=== PATIENT | male | born 1965 | race Caucasian/White ===

== ENCOUNTER 2020-11-19 21:17 | Inpatient (IN) | payer MEDICARE, MEDICAID ==
[~2020-11-19] VITALS: Ht 180.3 cm; Wt 77.3 kg
[~2020-11-19 21:17] MED LIST: AMAN-6 PO; BENZ1TAB10 PO; BUPR-93 PO; CLOZ100T32 PO; GLIP5 PO; LEVO100T4 PO; METF-960 PO; PIOG45TA4 PO; PROP10TA72 PO; SIMV-260 PO; SOLI5 PO; TEMA15CA PO; VALS160T2 PO
[2020-11-20 00:42] VITALS: BP 145/82
[2020-11-20] MEDS ORDERED: PNEUMOCOCCAL VACCINE POLYVALENT 0.5 ML VIAL [PPSV23] IM. ONE (03:00)
[2020-11-20] MEDS: ZOLPIDEM TARTRATE 10 MG TABLET PO PRN (03:55)
[2020-11-20] MEDS: HALOPERIDOL 5 MG TABLET PO PRN (06:02)
[2020-11-20] MEDS: LORazepam 2 MG TABLET PO PRN ×2 (06:02→12:50)
[2020-11-20 06:13] LABS: GLUCOMETER DEV NAME(LOC) BV2X.; GLUCOSE,POINT OF CARE 193 MG/DL (70-110)
[2020-11-20 07:56] LABS: BASOPHILS % (AUTO) 0.8 % (0.0-2.0); EOSINOPHILS % (AUTO) 0.1 % (1.0-6.0); HEMATOCRIT 49.2 % (41-53); HEMOGLOBIN 17.1 g/dL (13.5-17.5); LYMPHOCYTES % (AUTO) 30.6 % (22.0-44.0); MEAN CORPUSCULAR HEMOGLOBIN 33.3 pg (26.0-34.0); MEAN CORPUSCULAR HGB CONC 34.7 G/dL (31.0-37.0); MEAN CORPUSCULAR VOLUME 96 fL (80-100); MONOCYTES # (AUTO) 0.7 K/uL (0.1-1.0); MONOCYTES % (AUTO) 10.4 % (2.0-9.0); NEUTROPHILS # (AUTO) 3.7 K/uL (1.8-7.7); NEUTROPHILS % (AUTO) 58.1 % (40.0-70.0); PLATELET COUNT (AUTO) 145 K/uL (150-450); RED BLOOD CELL COUNT(AUTO) 5.13 MIL/uL (4.50-5.90)
[2020-11-20] MEDS ORDERED: ONDANSETRON HCL 4 MG TABLET PO PRN (08:00)
[2020-11-20] MEDS ORDERED: ALBUTEROL SULFATE HFA 90 MCG/PUFF 8 GM INHALER IH PRN (08:00)
[2020-11-20] MEDS ORDERED: LOPERAMIDE HCL 2 MG CAPSULE PO PRN (08:00)
[2020-11-20] MEDS ORDERED: NICOTINE 14 MG/24 HOUR PATCH TD PRN (08:00)
[2020-11-20] MEDS ORDERED: GuaiFENesin/D-METHORPHAN [SUGAR-FREE] 200-20MG/10 ML SYRUP UDCUP PO PRN (08:00)
[2020-11-20] MEDS ORDERED: MAG HYDROX/AL HYDROX/SIMETH ES 30 ML SUSPENSION UDCUP PO PRN (08:00)
[2020-11-20] MEDS ORDERED: DOCUSATE SODIUM 100 MG CAPSULE PO PRN (08:00)
[2020-11-20] MEDS ORDERED: MAGNESIUM HYDROXIDE SUSPENSION 30 ML UDCUP PO PRN (08:00)
[2020-11-20] MEDS ORDERED: PETROLATUM,WHITE 28 GM JELLY TP PRN (08:00)
[2020-11-20 08:02] LABS: HEMOGLOBIN A1C 6.1 % (3.8-5.6)
[2020-11-20 08:11] VITALS: BP 128/75
[2020-11-20 08:36] LABS: ALANINE AMINOTRANSFERASE 18 U/L (12-78); ALKALINE PHOSPHATASE 41 U/L (46-116); ANION GAP 5 mmol/L (8-16); ASPARTATE AMINOTRANSFERASE 11 U/L (15-37); BILIRUBIN,TOTAL 0.5 mg/dL (0.1-1.0); CALCIUM, TOTAL 9.3 mg/dL (8.8-10.5); CARBON DIOXIDE 28 mmol/L (22-29); CHLORIDE 104 mmol/L (98-107); CHOL/HDL RATIO 5.4 (4.2-7.3); CHOLESTEROL 188 mg/dL (131-200); CREATININE 0.94 mg/dL (0.60-1.30); FREE T4 (FREE THYROXINE) 0.84 ng/dL (0.76-1.46); GLOMERULAR FILTR. RATE CALC > 60 mL/min (>60); GLUCOSE,RANDOM 172 mg/dL (70-110); HDL CHOLESTEROL 35 mg/dL (40-60); LDL CHOL (CALC.) 130 mg/dL (0-130); POTASSIUM 4.3 mmol/L (3.5-5.1); SODIUM SERUM 137 mmol/L (136-145); THYROID STIMULATING HORMONE 4.24 uIU/mL (0.36-3.74); TOTAL PROTEIN, SERUM 7.6 g/dL (6.4-8.2); TRIGLYCERIDES 114 mg/dL (15-150); UREA NITROGEN, BLOOD 26 mg/dL (7-18)
[2020-11-20] MEDS: PROPRANOLOL HCL 10 MG TABLET PO SCH ×2 (09:00→12:08)
[2020-11-20] MEDS: NICOTINE 21 MG/24 HOUR PATCH TD SCH (12:07)
[2020-11-20] MEDS: ACETAMINOPHEN 325 MG TABLET PO PRN (12:10)
[2020-11-20] MEDS: PROPRANOLOL HCL 20 MG TABLET PO SCH ×2 (13:41→16:46)
[2020-11-20] MEDS: DIVALPROEX SODIUM 500 MG DR TABLET PO SCH ×2 (13:41→16:47)
[2020-11-20] MEDS: VALSARTAN 160 MG TABLET PO SCH (13:43)
[2020-11-20] MEDS: BusPIRone HCL 10 MG TABLET PO SCH ×2 (13:53→16:47)
[2020-11-20] MEDS: PIOGLITAZONE HCL 45 MG TABLET PO SCH (15:23)
[2020-11-20 16:04] VITALS: BP 131/74
[2020-11-20] MEDS: GlipiZIDE 5 MG TABLET PO SCH (16:46)
[2020-11-20] MEDS: MetFORMIN HCL 500 MG TABLET PO SCH (17:00)
[2020-11-20] MEDS ORDERED: HALOPERIDOL LACTATE 5 MG/ML VIAL IM ONE (17:45)
[2020-11-20] MEDS ORDERED: DiphenhydrAMINE HCL 50 MG/ML VIAL IM ONE (17:45)
[2020-11-20] MEDS ORDERED: LORazepam 2 MG/ML VIAL IM ONE (17:45)
[2020-11-20 19:30] VITALS: BP 128/50
[2020-11-20] MEDS: SOLIFENACIN SUCCINATE 5 MG TABLET PO SCH (20:41)
[2020-11-20] MEDS: TraZODone HCL 100 MG TABLET PO SCH (20:41)
[2020-11-20] MEDS: SIMVASTATIN 20 MG TABLET PO SCH (20:41)
[2020-11-20] MEDS: AMANTADINE HCL 100 MG CAPSULE PO SCH (20:42)
[2020-11-20] MEDS ORDERED: QUEtiapine FUMARATE 200 MG TABLET PO SCH (21:00)
[2020-11-21 00:31] VITALS: BP 126/65
[2020-11-21 02:30] VITALS: BP 130/84
[2020-11-21] MEDS: LORazepam 2 MG TABLET PO PRN ×4 (02:33→21:50)
[2020-11-21] MEDS: ZOLPIDEM TARTRATE 10 MG TABLET PO PRN ×2 (02:33→21:50)
[2020-11-21 06:00] VITALS: BP 112/65
[2020-11-21] MEDS: GlipiZIDE 5 MG TABLET PO SCH ×2 (06:23→17:30)
[2020-11-21] MEDS: HALOPERIDOL 5 MG TABLET PO PRN ×2 (06:23→13:14)
[2020-11-21] MEDS: LEVOTHYROXINE SODIUM 100 MCG TABLET PO SCH (06:23)
[2020-11-21] MEDS: MetFORMIN HCL 500 MG TABLET PO SCH ×2 (06:23→17:30)
[2020-11-21] MEDS ORDERED: DiphenhydrAMINE HCL 50 MG/ML VIAL ONE (07:37)
[2020-11-21] MEDS ORDERED: LORazepam 2 MG/ML VIAL ONE (07:37)
[2020-11-21] MEDS ORDERED: HALOPERIDOL LACTATE 5 MG/ML VIAL ONE (07:38)
[2020-11-21] MEDS ORDERED: LORazepam 2 MG/ML VIAL IM ONE ×2 (07:45→15:10)
[2020-11-21] MEDS ORDERED: HALOPERIDOL LACTATE 5 MG/ML VIAL IM ONE ×2 (07:45→15:10)
[2020-11-21] MEDS ORDERED: DiphenhydrAMINE HCL 50 MG/ML VIAL IM ONE ×2 (07:45→15:10)
[2020-11-21 08:04] VITALS: BP 128/67
[2020-11-21] MEDS: NICOTINE 21 MG/24 HOUR PATCH TD SCH (09:00)
[2020-11-21] MEDS: PIOGLITAZONE HCL 45 MG TABLET PO SCH (09:49)
[2020-11-21] MEDS: BusPIRone HCL 10 MG TABLET PO SCH ×3 (09:49→17:30)
[2020-11-21] MEDS: DIVALPROEX SODIUM 500 MG DR TABLET PO SCH ×3 (09:49→17:30)
[2020-11-21] MEDS: PROPRANOLOL HCL 20 MG TABLET PO SCH ×3 (09:49→17:30)
[2020-11-21] MEDS: VALSARTAN 160 MG TABLET PO SCH (09:49)
[2020-11-21] MEDS: TraZODone HCL 100 MG TABLET PO SCH (20:45)
[2020-11-21] MEDS: SOLIFENACIN SUCCINATE 5 MG TABLET PO SCH (20:45)
[2020-11-21] MEDS: QUEtiapine FUMARATE 200 MG TABLET PO SCH (20:45)
[2020-11-21] MEDS: AMANTADINE HCL 100 MG CAPSULE PO SCH (20:45)
[2020-11-21] MEDS: SIMVASTATIN 20 MG TABLET PO SCH (20:46)
[2020-11-22] MEDS: LORazepam 2 MG TABLET PO PRN ×3 (02:48→14:28)
[2020-11-22] MEDS: HALOPERIDOL 5 MG TABLET PO PRN (02:48)
[2020-11-22 06:18] VITALS: BP 128/79
[2020-11-22] MEDS: LEVOTHYROXINE SODIUM 100 MCG TABLET PO SCH (06:48)
[2020-11-22] MEDS: GlipiZIDE 5 MG TABLET PO SCH ×2 (06:48→16:39)
[2020-11-22] MEDS: MetFORMIN HCL 500 MG TABLET PO SCH ×2 (06:49→16:39)
[2020-11-22] MEDS ORDERED: ChlorproMAZINE HCL 50 MG TABLET PO PRN (07:30)
[2020-11-22 08:29] VITALS: BP 114/75
[2020-11-22] MEDS: DIVALPROEX SODIUM 500 MG DR TABLET PO SCH ×3 (08:36→16:39)
[2020-11-22] MEDS: BusPIRone HCL 10 MG TABLET PO SCH ×3 (08:36→16:39)
[2020-11-22] MEDS: PIOGLITAZONE HCL 45 MG TABLET PO SCH (08:36)
[2020-11-22] MEDS: PROPRANOLOL HCL 20 MG TABLET PO SCH ×3 (08:37→16:39)
[2020-11-22] MEDS: NICOTINE 21 MG/24 HOUR PATCH TD SCH (08:37)
[2020-11-22] MEDS: VALSARTAN 160 MG TABLET PO SCH (08:37)
[2020-11-22] MEDS: QUEtiapine FUMARATE 200 MG TABLET PO SCH ×2 (08:37→21:37)
[2020-11-22] MEDS: ACETAMINOPHEN 325 MG TABLET PO PRN (09:10)
[2020-11-22] MEDS ORDERED: IBUPROFEN 600 MG TABLET PO PRN (09:15)
[2020-11-22 16:34] VITALS: BP 109/62
[2020-11-22 18:05] LABS: GLUCOMETER DEV NAME(LOC) BV3N.; GLUCOSE,POINT OF CARE 152 MG/DL (70-110)
[2020-11-22] MEDS: AMANTADINE HCL 100 MG CAPSULE PO SCH (21:37)
[2020-11-22] MEDS: SIMVASTATIN 20 MG TABLET PO SCH (21:37)
[2020-11-22] MEDS: SOLIFENACIN SUCCINATE 5 MG TABLET PO SCH (21:37)
[2020-11-22] MEDS: TraZODone HCL 100 MG TABLET PO SCH (21:37)
[2020-11-23] MEDS: GlipiZIDE 5 MG TABLET PO SCH ×2 (06:53→16:09)
[2020-11-23] MEDS: LEVOTHYROXINE SODIUM 100 MCG TABLET PO SCH (06:54)
[2020-11-23] MEDS: MetFORMIN HCL 500 MG TABLET PO SCH ×2 (06:54→16:09)
[2020-11-23] MEDS: LORazepam 2 MG TABLET PO PRN ×2 (06:54→13:09)
[2020-11-23 08:20] VITALS: BP 102/63
[2020-11-23] MEDS: PIOGLITAZONE HCL 45 MG TABLET PO SCH (09:27)
[2020-11-23] MEDS: QUEtiapine FUMARATE 200 MG TABLET PO SCH ×2 (09:27→21:10)
[2020-11-23] MEDS: BusPIRone HCL 10 MG TABLET PO SCH ×3 (09:27→16:09)
[2020-11-23] MEDS: NICOTINE 21 MG/24 HOUR PATCH TD SCH (09:27)
[2020-11-23] MEDS: PROPRANOLOL HCL 20 MG TABLET PO SCH ×3 (09:27→16:09)
[2020-11-23] MEDS: DIVALPROEX SODIUM 500 MG DR TABLET PO SCH ×3 (09:27→16:09)
[2020-11-23] MEDS: VALSARTAN 160 MG TABLET PO SCH (09:32)
[2020-11-23 16:13] VITALS: BP 111/60
[2020-11-23] MEDS: AMANTADINE HCL 100 MG CAPSULE PO SCH (21:10)
[2020-11-23] MEDS: SIMVASTATIN 20 MG TABLET PO SCH (21:10)
[2020-11-23] MEDS: TraZODone HCL 100 MG TABLET PO SCH (21:10)
[2020-11-23] MEDS: SOLIFENACIN SUCCINATE 5 MG TABLET PO SCH (21:10)
[2020-11-24 06:30] VITALS: BP 140/72
[2020-11-24] MEDS: MetFORMIN HCL 500 MG TABLET PO SCH ×2 (06:37→16:41)
[2020-11-24] MEDS: GlipiZIDE 5 MG TABLET PO SCH ×2 (06:37→16:01)
[2020-11-24] MEDS: LEVOTHYROXINE SODIUM 100 MCG TABLET PO SCH (06:38)
[2020-11-24] MEDS: LORazepam 2 MG TABLET PO PRN ×2 (06:38→16:01)
[2020-11-24 08:35] VITALS: BP 132/67
[2020-11-24] MEDS: PIOGLITAZONE HCL 45 MG TABLET PO SCH (09:05)
[2020-11-24] MEDS: PROPRANOLOL HCL 20 MG TABLET PO SCH ×3 (09:06→16:32)
[2020-11-24] MEDS: DIVALPROEX SODIUM 500 MG DR TABLET PO SCH ×3 (09:07→16:31)
[2020-11-24] MEDS: QUEtiapine FUMARATE 200 MG TABLET PO SCH ×2 (09:07→20:27)
[2020-11-24] MEDS: VALSARTAN 160 MG TABLET PO SCH (09:09)
[2020-11-24] MEDS: NICOTINE 21 MG/24 HOUR PATCH TD SCH (09:09)
[2020-11-24] MEDS: BusPIRone HCL 10 MG TABLET PO SCH ×3 (09:10→16:31)
[2020-11-24 16:22] VITALS: BP 124/79
[2020-11-24] MEDS: HALOPERIDOL 5 MG TABLET PO PRN (17:28)
[2020-11-24] MEDS: SIMVASTATIN 20 MG TABLET PO SCH (20:27)
[2020-11-24] MEDS: TraZODone HCL 100 MG TABLET PO SCH (20:27)
[2020-11-24] MEDS: AMANTADINE HCL 100 MG CAPSULE PO SCH (20:28)
[2020-11-24] MEDS: SOLIFENACIN SUCCINATE 5 MG TABLET PO SCH (20:28)
[2020-11-25 06:09] VITALS: BP 118/69
[2020-11-25] MEDS: GlipiZIDE 5 MG TABLET PO SCH (06:22)
[2020-11-25] MEDS: LEVOTHYROXINE SODIUM 100 MCG TABLET PO SCH (06:22)
[2020-11-25] MEDS: LORazepam 2 MG TABLET PO PRN (06:22)
[2020-11-25] MEDS: MetFORMIN HCL 500 MG TABLET PO SCH (06:23)
[2020-11-25 08:21] VITALS: BP 109/73
[2020-11-25] MEDS: BusPIRone HCL 10 MG TABLET PO SCH ×2 (08:24→12:02)
[2020-11-25] MEDS: DIVALPROEX SODIUM 500 MG DR TABLET PO SCH ×2 (08:24→12:02)
[2020-11-25] MEDS: PIOGLITAZONE HCL 45 MG TABLET PO SCH (08:24)
[2020-11-25] MEDS: VALSARTAN 160 MG TABLET PO SCH (08:24)
[2020-11-25] MEDS: ACETAMINOPHEN 325 MG TABLET PO PRN (08:25)
[2020-11-25] MEDS: QUEtiapine FUMARATE 200 MG TABLET PO SCH (08:25)
[2020-11-25] MEDS: PROPRANOLOL HCL 20 MG TABLET PO SCH ×2 (08:25→13:08)
[2020-11-25] MEDS: NICOTINE 21 MG/24 HOUR PATCH TD SCH (08:26)
[2020-11-25] MEDS: HALOPERIDOL 5 MG TABLET PO PRN (08:26)
[2020-11-25] MEDS ORDERED: PROP20TA18 PO (14:48)
[2020-11-25] MEDS ORDERED: QUET200T PO (14:49)
[2020-11-25] MEDS ORDERED: TRAZ-257 PO (14:49)
[2020-11-25] MEDS ORDERED: DIVA-112 PO (14:50)
[2020-11-25] MEDS ORDERED: BUSP10TA23 PO (14:51)
== END 2020-11-25 15:55 | disposition home or self-care (01) | DRG 885 ==
LOC: B2X 11-20 00:01 → B3A 11-21 14:23
DX: F25.0 Schizoaffective disorder, bipolar type (principal); R45.851 Suicidal ideations; E11.9 Type 2 diabetes mellitus without complications; I10 Essential (primary) hypertension; J44.9 Chronic obstructive pulmonary disease, unspecified; Z79.899 Other long term (current) drug therapy; E78.5 Hyperlipidemia, unspecified; E03.9 Hypothyroidism, unspecified; M19.90 Unspecified osteoarthritis, unspecified site
CPT/HCPCS: 80053; 82962; 83036; 84439; 84443; 85025; J1200; J1630; J2060

== ENCOUNTER 2022-03-13 14:13 | Inpatient (IN) | payer MEDICARE, MEDICAID ==
[~2022-03-13] VITALS: Ht 180.3 cm; Wt 100.2 kg
[~2022-03-13 14:13] MED LIST changes: +AMAN-24 PO; -AMAN-6 PO; -BENZ1TAB10 PO; -BUPR-93 PO; +BUSP10TA23 PO; -CLOZ100T32 PO; +DIVA-112 PO; -GLIP5 PO; +GLIP5TAB12 PO; +METF-1211 PO; -METF-960 PO; -PROP10TA72 PO; +PROP20TA18 PO; +QUET200T PO; -TEMA15CA PO; +TRAZ-257 PO
[2022-03-13] MEDS ORDERED: DiphenhydrAMINE HCL 50 MG/ML VIAL IM ONE (16:00)
[2022-03-13] MEDS ORDERED: LORazepam 2 MG/ML VIAL IM ONE (16:00)
[2022-03-13] MEDS ORDERED: HALOPERIDOL LACTATE 5 MG/ML VIAL IM ONE (16:00)
[2022-03-13] MEDS ORDERED: PROPRANOLOL HCL 10 MG TABLET PO ONE (17:00)
[2022-03-13] MEDS ORDERED: INSULIN REGULAR, HUMAN 100 UNITS/ML SQ ONE (17:00)
[2022-03-13] MEDS ORDERED: PIOGLITAZONE HCL 15 MG TABLET PO ONE (17:00)
[2022-03-13] MEDS ORDERED: KETOROLAC TROMETHAMINE 60 MG/2 ML VIAL IM ONE (17:15)
[2022-03-13 18:37] LABS: APPEARANCE,URINE CLEAR (CLEAR); BILIRUBIN,URINE NEGATIVE (NEGATIVE); GLUCOSE, URINE (UA) >=1000 mg/dL (NEGATIVE); KETONES,URINE TRACE mg/dL (NEGATIVE); LEUKOCYTE ESTERASE ,URINE NEGATIVE (NEGATIVE); NITRATE,URINE NEGATIVE (NEGATIVE); OCCULT BLOOD,URINE NEGATIVE (NEGATIVE); PROTEIN,URINE NEGATIVE (NEGATIVE); SPECIFIC GRAVITIY, URINE 1.031 (1.003-1.030); UROBILINOGEN,URINE <=1.0 mg/dL (<=1.0)
[2022-03-13 18:42] LABS: AMPHET/METH SCREEN,URINE NEGATIVE (NEGATIVE); BARBITURATE SCREEN, URINE NEGATIVE (NEGATIVE); BENZODIAZEPINES SCREEN,URINE NEGATIVE (NEGATIVE); CANNABINOID SCREEN,URINE NEGATIVE (NEGATIVE); COCAINE SCREEN,URINE NEGATIVE (NEGATIVE); METHADONE SCREEN, URINE NEGATIVE (NEGATIVE); OPIATE SCREEN,URINE NEGATIVE (NEGATIVE)
[2022-03-13 18:47] LABS: PHENCYCLIDINE SCREEN,URINE NEGATIVE (NEGATIVE)
[2022-03-13 18:52] LABS: COVID AG,FIA SOURCE NASAL SWAB
[2022-03-13 20:06] LABS: GLUCOSE,POINT OF CARE 337 MG/DL (70-110)
[2022-03-13 21:41] LABS: BACTERIA,URINE None Seen /HPF (None Seen); RBC,URINE None Seen /HPF (0-2); WBC,URINE None Seen /HPF (0-5)
[2022-03-13 22:23] VITALS: BP 112/64
[2022-03-13] MEDS: ZOLPIDEM TARTRATE 10 MG TABLET PO PRN (22:31)
[2022-03-13 22:51] LABS: GLUCOMETER DEV NAME(LOC) BV3N.; GLUCOSE,POINT OF CARE 207 MG/DL (70-110)
[2022-03-14] MEDS ORDERED: MAGNESIUM HYDROXIDE SUSPENSION 30 ML UDCUP PO PRN (06:00)
[2022-03-14] MEDS ORDERED: PETROLATUM,WHITE 28 GM JELLY TP PRN (06:00)
[2022-03-14] MEDS ORDERED: LOPERAMIDE HCL 2 MG CAPSULE PO PRN (06:00)
[2022-03-14] MEDS ORDERED: GuaiFENesin/D-METHORPHAN [SUGAR-FREE] 200-20MG/10 ML SYRUP UDCUP PO PRN (06:00)
[2022-03-14] MEDS ORDERED: ALBUTEROL SULFATE HFA 90 MCG/PUFF 8 GM INHALER IH PRN (06:00)
[2022-03-14] MEDS ORDERED: NICOTINE 14 MG/24 HOUR PATCH TD PRN (06:00)
[2022-03-14] MEDS ORDERED: ONDANSETRON HCL 4 MG TABLET PO PRN (06:00)
[2022-03-14] MEDS ORDERED: MAG HYDROX/AL HYDROX/SIMETH ES 30 ML SUSPENSION UDCUP PO PRN (06:00)
[2022-03-14] MEDS ORDERED: DOCUSATE SODIUM 100 MG CAPSULE PO PRN (06:00)
[2022-03-14 06:11] LABS: GLUCOMETER DEV NAME(LOC) BV3N.; GLUCOSE,POINT OF CARE 217 MG/DL (70-110)
[2022-03-14] MEDS: MetFORMIN HCL 500 MG TABLET PO SCH ×2 (06:47→16:12)
[2022-03-14] MEDS: GlipiZIDE 5 MG TABLET PO SCH ×2 (06:47→16:12)
[2022-03-14] MEDS: LEVOTHYROXINE SODIUM 100 MCG TABLET PO SCH (06:47)
[2022-03-14 07:09] LABS: BASOPHILS % (AUTO) 1.4 % (0.0-2.0); EOSINOPHILS % (AUTO) 0.2 % (1.0-6.0); HEMATOCRIT 37.7 % (41-53); HEMOGLOBIN 13.2 g/dL (13.5-17.5); LYMPHOCYTES # (AUTO) 1.7 K/uL (1.0-4.8); LYMPHOCYTES % (AUTO) 41.7 % (22.0-44.0); MEAN CORPUSCULAR HEMOGLOBIN 32.1 pg (26.0-34.0); MEAN CORPUSCULAR HGB CONC 35.1 G/dL (31.0-37.0); MEAN CORPUSCULAR VOLUME 91 fL (80-100); MONOCYTES # (AUTO) 0.4 K/uL (0.1-1.0); MONOCYTES % (AUTO) 10.2 % (2.0-9.0); NEUTROPHILS # (AUTO) 1.9 K/uL (1.8-7.7); NEUTROPHILS % (AUTO) 46.5 % (40.0-70.0); PLATELET COUNT (AUTO) 140 K/uL (150-450); RED BLOOD CELL COUNT(AUTO) 4.13 MIL/uL (4.50-5.90); RED CELL DISTRIBUTION WIDTH 14.1 % (11.5-14.5)
[2022-03-14 07:24] LABS: HEMOGLOBIN A1C 8.6 % (3.8-5.6)
[2022-03-14 07:40] LABS: ALANINE AMINOTRANSFERASE 8 U/L (12-78); ALBUMIN 2.9 g/dL (3.4-5.0); ALKALINE PHOSPHATASE 37 U/L (46-116); ANION GAP 7 mmol/L (8-16); ASPARTATE AMINOTRANSFERASE 7 U/L (15-37); BILIRUBIN,TOTAL 0.2 mg/dL (0.1-1.0); CALCIUM, TOTAL 8.3 mg/dL (8.8-10.5); CARBON DIOXIDE 26 mmol/L (22-29); CHLORIDE 102 mmol/L (98-107); CHOL/HDL RATIO 6.1 (4.2-7.3); CHOLESTEROL 200 mg/dL (131-200); FREE T4 (FREE THYROXINE) 1.13 ng/dL (0.76-1.46); GLUCOSE,RANDOM 215 mg/dL (70-110); HDL CHOLESTEROL 33 mg/dL (40-60); LDL CHOL (CALC.) 124 mg/dL (0-130); POTASSIUM 4.7 mmol/L (3.5-5.1); SODIUM SERUM 135 mmol/L (136-145); THYROID STIMULATING HORMONE 2.84 uIU/mL (0.36-3.74); TOTAL PROTEIN, SERUM 6.5 g/dL (6.4-8.2); TRIGLYCERIDES 213 mg/dL (15-150); UREA NITROGEN, BLOOD 28 mg/dL (7-18); VALPROIC ACID 26 mcg/mL (50-100)
[2022-03-14 07:42] LABS: GLOMERULAR FILTR. RATE CALC 57 mL/min (>60)
[2022-03-14 08:05] VITALS: BP 121/63
[2022-03-14] MEDS: QUEtiapine FUMARATE 100 MG TABLET PO PRN (08:50)
[2022-03-14] MEDS: LORazepam 2 MG TABLET PO PRN ×2 (08:50→21:13)
[2022-03-14] MEDS: NICOTINE 21 MG/24 HOUR PATCH TD SCH (08:50)
[2022-03-14] MEDS: PIOGLITAZONE HCL 45 MG TABLET PO SCH (09:00)
[2022-03-14] MEDS: VALSARTAN 160 MG TABLET PO SCH (09:00)
[2022-03-14] MEDS ORDERED: PROPRANOLOL HCL 20 MG TABLET PO SCH ×2 (09:00)
[2022-03-14] MEDS ORDERED: PIOGLITAZONE HCL 15 MG TABLET PO SCH (09:00)
[2022-03-14] MEDS: DIVALPROEX SODIUM 500 MG DR TABLET PO SCH ×3 (11:38→21:13)
[2022-03-14] MEDS: QUEtiapine FUMARATE 200 MG TABLET PO SCH ×2 (11:39→21:06)
[2022-03-14] MEDS ORDERED: LORazepam 2 MG/ML VIAL IM ONE (16:00)
[2022-03-14] MEDS ORDERED: DiphenhydrAMINE HCL 50 MG/ML VIAL IM ONE (16:00)
[2022-03-14] MEDS ORDERED: HALOPERIDOL LACTATE 5 MG/ML VIAL IM ONE (16:00)
[2022-03-14] MEDS: PROPRANOLOL HCL 20 MG TABLET PO SCH ×2 (16:12→21:06)
[2022-03-14 20:02] VITALS: BP 128/80
[2022-03-14] MEDS: AMANTADINE HCL 100 MG CAPSULE PO SCH (21:00)
[2022-03-14] MEDS: SOLIFENACIN SUCCINATE 5 MG TABLET PO SCH (21:00)
[2022-03-14] MEDS: TraZODone HCL 100 MG TABLET PO SCH (21:06)
[2022-03-14] MEDS: SIMVASTATIN 20 MG TABLET PO SCH (21:06)
[2022-03-15 06:26] LABS: GLUCOMETER DEV NAME(LOC) BV3N.; GLUCOSE,POINT OF CARE 255 MG/DL (70-110)
[2022-03-15] MEDS: GlipiZIDE 5 MG TABLET PO SCH ×2 (06:28→16:44)
[2022-03-15] MEDS: MetFORMIN HCL 500 MG TABLET PO SCH ×2 (06:28→16:45)
[2022-03-15] MEDS: LEVOTHYROXINE SODIUM 100 MCG TABLET PO SCH (06:28)
[2022-03-15] MEDS: LORazepam 2 MG TABLET PO PRN ×2 (08:07→16:45)
[2022-03-15] MEDS: VALSARTAN 160 MG TABLET PO SCH (08:07)
[2022-03-15] MEDS: PROPRANOLOL HCL 20 MG TABLET PO SCH ×3 (08:07→20:34)
[2022-03-15] MEDS: PIOGLITAZONE HCL 45 MG TABLET PO SCH (08:07)
[2022-03-15] MEDS: NICOTINE 21 MG/24 HOUR PATCH TD SCH (08:08)
[2022-03-15] MEDS: QUEtiapine FUMARATE 200 MG TABLET PO SCH ×2 (08:08→20:34)
[2022-03-15] MEDS: DIVALPROEX SODIUM 500 MG DR TABLET PO SCH ×3 (08:08→20:34)
[2022-03-15 08:27] VITALS: BP 120/70
[2022-03-15] MEDS: QUEtiapine FUMARATE 100 MG TABLET PO PRN (16:45)
[2022-03-15 17:01] LABS: GLUCOMETER DEV NAME(LOC) BV3N.; GLUCOSE,POINT OF CARE 242 MG/DL (70-110)
[2022-03-15] MEDS ORDERED: GLUCAGON,HUMAN RECOMBINANT 1 MG VIAL IM PRN (17:30)
[2022-03-15] MEDS: INSULIN LISPRO 100 UNITS/ML SQ PRN (17:43)
[2022-03-15 20:02] VITALS: BP 101/63
[2022-03-15] MEDS ORDERED: DiphenhydrAMINE HCL 50 MG/ML VIAL ONE (20:31)
[2022-03-15] MEDS ORDERED: LORazepam 2 MG/ML VIAL ONE (20:32)
[2022-03-15] MEDS ORDERED: HALOPERIDOL LACTATE 5 MG/ML VIAL ONE (20:33)
[2022-03-15] MEDS: SOLIFENACIN SUCCINATE 5 MG TABLET PO SCH (20:34)
[2022-03-15] MEDS: TraZODone HCL 100 MG TABLET PO SCH (20:35)
[2022-03-15] MEDS: ZOLPIDEM TARTRATE 10 MG TABLET PO PRN (20:35)
[2022-03-15] MEDS: SIMVASTATIN 20 MG TABLET PO SCH (20:35)
[2022-03-15] MEDS: AMANTADINE HCL 100 MG CAPSULE PO SCH (20:36)
[2022-03-15] MEDS ORDERED: HALOPERIDOL LACTATE 5 MG/ML VIAL IM ONE (21:00)
[2022-03-15] MEDS ORDERED: LORazepam 2 MG/ML VIAL IM ONE (21:00)
[2022-03-15] MEDS ORDERED: DiphenhydrAMINE HCL 50 MG/ML VIAL IM ONE (21:00)
[2022-03-16] MEDS: MetFORMIN HCL 500 MG TABLET PO SCH ×2 (06:12→17:03)
[2022-03-16] MEDS: GlipiZIDE 5 MG TABLET PO SCH ×2 (06:12→17:02)
[2022-03-16] MEDS: LEVOTHYROXINE SODIUM 100 MCG TABLET PO SCH (06:12)
[2022-03-16] MEDS: INSULIN LISPRO 100 UNITS/ML SQ PRN ×2 (06:13→17:10)
[2022-03-16 06:21] LABS: GLUCOMETER DEV NAME(LOC) BV3N.; GLUCOSE,POINT OF CARE 300 MG/DL (70-110)
[2022-03-16 08:01] VITALS: BP 118/70
[2022-03-16] MEDS: PIOGLITAZONE HCL 45 MG TABLET PO SCH (08:52)
[2022-03-16] MEDS: PROPRANOLOL HCL 20 MG TABLET PO SCH ×3 (08:52→20:30)
[2022-03-16] MEDS: VALSARTAN 160 MG TABLET PO SCH (08:53)
[2022-03-16] MEDS: DIVALPROEX SODIUM 500 MG DR TABLET PO SCH ×2 (08:53→20:29)
[2022-03-16] MEDS: NICOTINE 21 MG/24 HOUR PATCH TD SCH (08:53)
[2022-03-16] MEDS: QUEtiapine FUMARATE 200 MG TABLET PO SCH (08:57)
[2022-03-16] MEDS ORDERED: ChlorproMAZINE HCL 50 MG/2 ML AMP ONE (09:36)
[2022-03-16] MEDS ORDERED: LORazepam 2 MG/ML VIAL ONE (09:38)
[2022-03-16] MEDS ORDERED: DiphenhydrAMINE HCL 50 MG/ML VIAL ONE (09:38)
[2022-03-16] MEDS ORDERED: LORazepam 2 MG/ML VIAL IM ONE (09:45)
[2022-03-16] MEDS ORDERED: ChlorproMAZINE HCL 50 MG/2 ML AMP IM ONE (09:45)
[2022-03-16] MEDS ORDERED: DiphenhydrAMINE HCL 50 MG/ML VIAL IM ONE (09:45)
[2022-03-16] MEDS: LORazepam 2 MG TABLET PO PRN ×2 (17:03→23:10)
[2022-03-16 17:26] LABS: GLUCOMETER DEV NAME(LOC) BV3N.; GLUCOSE,POINT OF CARE 316 MG/DL (70-110)
[2022-03-16 20:03] VITALS: BP 103/68
[2022-03-16] MEDS: SOLIFENACIN SUCCINATE 5 MG TABLET PO SCH (20:29)
[2022-03-16] MEDS: TraZODone HCL 100 MG TABLET PO SCH (20:29)
[2022-03-16] MEDS: SIMVASTATIN 20 MG TABLET PO SCH (20:30)
[2022-03-16] MEDS: AMANTADINE HCL 100 MG CAPSULE PO SCH (20:30)
[2022-03-16] MEDS: ZOLPIDEM TARTRATE 10 MG TABLET PO PRN (20:31)
[2022-03-17] MEDS: LEVOTHYROXINE SODIUM 100 MCG TABLET PO SCH (06:14)
[2022-03-17] MEDS: MetFORMIN HCL 500 MG TABLET PO SCH ×2 (06:14→16:22)
[2022-03-17] MEDS: GlipiZIDE 5 MG TABLET PO SCH ×2 (06:14→16:22)
[2022-03-17] MEDS: INSULIN LISPRO 100 UNITS/ML SQ PRN ×2 (06:16→16:29)
[2022-03-17 06:20] LABS: GLUCOMETER DEV NAME(LOC) BV3N.; GLUCOSE,POINT OF CARE 291 MG/DL (70-110)
[2022-03-17] MEDS: LORazepam 2 MG TABLET PO PRN ×2 (08:15→20:07)
[2022-03-17] MEDS: BuPROPion HCL XL 150 MG ER TABLET PO SCH (08:15)
[2022-03-17] MEDS: PALIPERIDONE 9 MG ER TABLET PO SCH (08:15)
[2022-03-17] MEDS: PIOGLITAZONE HCL 45 MG TABLET PO SCH (08:15)
[2022-03-17] MEDS: VALSARTAN 160 MG TABLET PO SCH (08:15)
[2022-03-17] MEDS: PROPRANOLOL HCL 20 MG TABLET PO SCH ×3 (08:15→20:06)
[2022-03-17] MEDS: DIVALPROEX SODIUM 500 MG DR TABLET PO SCH ×2 (08:15→20:06)
[2022-03-17] MEDS: NICOTINE 21 MG/24 HOUR PATCH TD SCH (08:16)
[2022-03-17 08:38] VITALS: BP 104/65
[2022-03-17 16:20] VITALS: BP 109/75
[2022-03-17] MEDS: SULFAMETHOX/TRIMETH DS 800-160 MG/TABLET PO SCH (16:22)
[2022-03-17] MEDS: ACETAMINOPHEN 325 MG TABLET PO PRN (16:22)
[2022-03-17] MEDS: BACITRACIN 28 GM OINTMENT TP SCH (16:23)
[2022-03-17 16:41] LABS: GLUCOMETER DEV NAME(LOC) BV3N.; GLUCOSE,POINT OF CARE 220 MG/DL (70-110)
[2022-03-17] MEDS: SIMVASTATIN 20 MG TABLET PO SCH (20:06)
[2022-03-17] MEDS: AMANTADINE HCL 100 MG CAPSULE PO SCH (20:06)
[2022-03-17] MEDS: TraZODone HCL 100 MG TABLET PO SCH (20:06)
[2022-03-17] MEDS: SOLIFENACIN SUCCINATE 5 MG TABLET PO SCH (20:07)
[2022-03-17 20:23] VITALS: BP 103/65
[2022-03-17] MEDS: ZOLPIDEM TARTRATE 10 MG TABLET PO PRN (23:03)
[2022-03-18] MEDS: LORazepam 2 MG TABLET PO PRN ×4 (03:06→22:13)
[2022-03-18] MEDS: GlipiZIDE 5 MG TABLET PO SCH ×2 (06:31→16:59)
[2022-03-18] MEDS: LEVOTHYROXINE SODIUM 100 MCG TABLET PO SCH (06:31)
[2022-03-18] MEDS: MetFORMIN HCL 500 MG TABLET PO SCH ×2 (06:31→16:58)
[2022-03-18] MEDS: INSULIN LISPRO 100 UNITS/ML SQ PRN ×2 (06:34→17:02)
[2022-03-18 08:04] VITALS: BP 110/66
[2022-03-18] MEDS: PALIPERIDONE 9 MG ER TABLET PO SCH (08:04)
[2022-03-18] MEDS: PIOGLITAZONE HCL 45 MG TABLET PO SCH (08:04)
[2022-03-18] MEDS: VALSARTAN 160 MG TABLET PO SCH (08:04)
[2022-03-18] MEDS: SULFAMETHOX/TRIMETH DS 800-160 MG/TABLET PO SCH ×2 (08:05→16:58)
[2022-03-18] MEDS: DIVALPROEX SODIUM 500 MG DR TABLET PO SCH ×2 (08:05→20:42)
[2022-03-18] MEDS: BACITRACIN 28 GM OINTMENT TP SCH ×2 (08:05→17:25)
[2022-03-18] MEDS: BuPROPion HCL XL 150 MG ER TABLET PO SCH (08:05)
[2022-03-18] MEDS: PROPRANOLOL HCL 20 MG TABLET PO SCH ×3 (08:05→20:42)
[2022-03-18] MEDS: NICOTINE 21 MG/24 HOUR PATCH TD SCH (08:05)
[2022-03-18 08:58] LABS: GLUCOMETER DEV NAME(LOC) BV3N.; GLUCOSE,POINT OF CARE 282 MG/DL (70-110)
[2022-03-18] MEDS: ACETAMINOPHEN 325 MG TABLET PO PRN (09:42)
[2022-03-18] MEDS: QUEtiapine FUMARATE 100 MG TABLET PO PRN ×2 (10:50→16:58)
[2022-03-18 17:46] LABS: GLUCOMETER DEV NAME(LOC) BV3N.; GLUCOSE,POINT OF CARE 258 MG/DL (70-110)
[2022-03-18 20:32] VITALS: BP 103/62
[2022-03-18] MEDS: TraZODone HCL 100 MG TABLET PO SCH (20:42)
[2022-03-18] MEDS: SOLIFENACIN SUCCINATE 5 MG TABLET PO SCH (20:42)
[2022-03-18] MEDS: SIMVASTATIN 20 MG TABLET PO SCH (20:42)
[2022-03-18] MEDS: ZOLPIDEM TARTRATE 10 MG TABLET PO PRN (20:43)
[2022-03-18] MEDS: AMANTADINE HCL 100 MG CAPSULE PO SCH (20:43)
[2022-03-19] MEDS: LEVOTHYROXINE SODIUM 100 MCG TABLET PO SCH (06:33)
[2022-03-19] MEDS: GlipiZIDE 5 MG TABLET PO SCH ×2 (06:33→16:42)
[2022-03-19] MEDS: MetFORMIN HCL 500 MG TABLET PO SCH ×2 (06:33→16:42)
[2022-03-19 06:36] LABS: GLUCOMETER DEV NAME(LOC) BV3N.; GLUCOSE,POINT OF CARE 222 MG/DL (70-110)
[2022-03-19] MEDS: INSULIN LISPRO 100 UNITS/ML SQ PRN ×2 (06:45→16:46)
[2022-03-19 08:14] VITALS: BP 124/72
[2022-03-19] MEDS: PROPRANOLOL HCL 20 MG TABLET PO SCH ×3 (08:33→20:45)
[2022-03-19] MEDS: PALIPERIDONE 9 MG ER TABLET PO SCH (08:34)
[2022-03-19] MEDS: VALSARTAN 160 MG TABLET PO SCH (08:34)
[2022-03-19] MEDS: OMEGA-3/DHA/EPA/FISH OIL 1,000 MG CAPSULE PO SCH (08:35)
[2022-03-19] MEDS: DIVALPROEX SODIUM 500 MG DR TABLET PO SCH ×2 (08:35→20:45)
[2022-03-19] MEDS: BuPROPion HCL XL 150 MG ER TABLET PO SCH (08:35)
[2022-03-19] MEDS: SULFAMETHOX/TRIMETH DS 800-160 MG/TABLET PO SCH ×2 (08:35→16:42)
[2022-03-19] MEDS: NICOTINE 21 MG/24 HOUR PATCH TD SCH (08:38)
[2022-03-19] MEDS: BACITRACIN 28 GM OINTMENT TP SCH ×2 (08:42→16:43)
[2022-03-19] MEDS: PIOGLITAZONE HCL 45 MG TABLET PO SCH (08:43)
[2022-03-19] MEDS: QUEtiapine FUMARATE 100 MG TABLET PO PRN (16:43)
[2022-03-19] MEDS: LORazepam 2 MG TABLET PO PRN (16:43)
[2022-03-19] MEDS: ACETAMINOPHEN 325 MG TABLET PO PRN (16:43)
[2022-03-19 17:01] LABS: GLUCOMETER DEV NAME(LOC) BV3N.; GLUCOSE,POINT OF CARE 197 MG/DL (70-110)
[2022-03-19 20:06] VITALS: BP 113/68
[2022-03-19] MEDS: TraZODone HCL 100 MG TABLET PO SCH (20:45)
[2022-03-19] MEDS: SOLIFENACIN SUCCINATE 5 MG TABLET PO SCH (20:45)
[2022-03-19] MEDS: SIMVASTATIN 20 MG TABLET PO SCH (20:45)
[2022-03-19] MEDS: AMANTADINE HCL 100 MG CAPSULE PO SCH (20:45)
[2022-03-20] MEDS: ZOLPIDEM TARTRATE 10 MG TABLET PO PRN (00:38)
[2022-03-20] MEDS: GlipiZIDE 5 MG TABLET PO SCH (06:31)
[2022-03-20] MEDS: MetFORMIN HCL 500 MG TABLET PO SCH (06:31)
[2022-03-20] MEDS: LEVOTHYROXINE SODIUM 100 MCG TABLET PO SCH (06:31)
[2022-03-20 06:36] LABS: GLUCOMETER DEV NAME(LOC) BV3N.; GLUCOSE,POINT OF CARE 220 MG/DL (70-110)
[2022-03-20] MEDS: INSULIN LISPRO 100 UNITS/ML SQ PRN (06:39)
[2022-03-20 08:02] VITALS: BP 118/77
[2022-03-20] MEDS: PIOGLITAZONE HCL 45 MG TABLET PO SCH (08:10)
[2022-03-20] MEDS: VALSARTAN 160 MG TABLET PO SCH (08:10)
[2022-03-20] MEDS: PALIPERIDONE 9 MG ER TABLET PO SCH (08:10)
[2022-03-20] MEDS: BuPROPion HCL XL 150 MG ER TABLET PO SCH (08:11)
[2022-03-20] MEDS: DIVALPROEX SODIUM 500 MG DR TABLET PO SCH (08:11)
[2022-03-20] MEDS: PROPRANOLOL HCL 20 MG TABLET PO SCH (08:11)
[2022-03-20] MEDS: OMEGA-3/DHA/EPA/FISH OIL 1,000 MG CAPSULE PO SCH (08:11)
[2022-03-20] MEDS: QUEtiapine FUMARATE 100 MG TABLET PO PRN (08:12)
[2022-03-20] MEDS: SULFAMETHOX/TRIMETH DS 800-160 MG/TABLET PO SCH (08:12)
[2022-03-20] MEDS: LORazepam 2 MG TABLET PO PRN (08:12)
[2022-03-20] MEDS: NICOTINE 21 MG/24 HOUR PATCH TD SCH (08:14)
[2022-03-20] MEDS: BACITRACIN 28 GM OINTMENT TP SCH (08:15)
[2022-03-20] MEDS ORDERED: PIOG45TA4 PO (09:31)
[2022-03-20] MEDS ORDERED: GLIP5TAB12 PO (09:31)
[2022-03-20] MEDS ORDERED: LEVO100T4 PO (09:31)
[2022-03-20] MEDS ORDERED: OMEG-135 PO (09:31)
[2022-03-20] MEDS ORDERED: DIVA-112 PO (09:31)
[2022-03-20] MEDS ORDERED: METF-1211 PO (09:31)
[2022-03-20] MEDS ORDERED: PROP20TA18 PO (09:31)
[2022-03-20] MEDS ORDERED: BUPR-49 PO (09:31)
[2022-03-20] MEDS ORDERED: VALS160T2 PO (09:31)
[2022-03-20] MEDS ORDERED: SIMV-260 PO (09:31)
[2022-03-20] MEDS ORDERED: SOLI5 PO (09:31)
[2022-03-20] MEDS ORDERED: TRAZ-257 PO (09:31)
[2022-03-20] MEDS ORDERED: PALI9TAB15 PO (09:31)
[2022-03-20] MEDS ORDERED: AMAN-24 PO (09:31)
[2022-03-20] MEDS: ACETAMINOPHEN 325 MG TABLET PO PRN (09:36)
[2022-03-20] MEDS ORDERED: BACTDSB PO (09:40)
== END 2022-03-20 13:45 | disposition home or self-care (01) | DRG 885 ==
LOC: EMS 14:22 → B3A 18:51
PROVIDERS: ADMIT Psychiatry & Neurology Psychiatry; ATTEND Psychiatry & Neurology Psychiatry
DX: F25.0 Schizoaffective disorder, bipolar type (principal); Z20.822 Contact with and (suspected) exposure to COVID-19; E03.9 Hypothyroidism, unspecified; E11.9 Type 2 diabetes mellitus without complications; E78.5 Hyperlipidemia, unspecified; I10 Essential (primary) hypertension; F17.210 Nicotine dependence, cigarettes, uncomplicated; J44.9 Chronic obstructive pulmonary disease, unspecified; R32 Unspecified urinary incontinence; Z88.8 Allergy status to other drugs, medicaments and biological substances; Z86.14 Personal history of Methicillin resistant Staphylococcus aureus infection; Z79.899 Other long term (current) drug therapy
CPT/HCPCS: 80053; 80061; 80164; 81001; 81003; 82962; 83036; 84439; 84443; 85025; 87081; G0480; J1200; J1630; J1815; J1885; J2060; J3230; Q9967